=== PATIENT | male | born 1950 | race Caucasian/White ===

== ENCOUNTER 2017-06-20 15:57 | Outpatient (CLI) | payer MEDICARE, BC ==
[2017-06-20 16:11] LABS: Hemoglobin 13.4 g/dL (14.0-18.0)
== END 2017-06-20 15:58 | disposition home or self-care (01) ==
LOC: NAV LAB 15:57
PROVIDERS: ATTEND Internal Medicine Gastroenterology
DX: K92.1 Melena (principal)
CPT/HCPCS: 85014; 85018

== ENCOUNTER 2019-02-03 09:07 | Emergency (ER) | payer MEDICARE, BC | END 2019-02-03 09:41 | disposition home or self-care (01) | LOC: NAV ERS 09:07 | DX: T16.2XXA Foreign body in left ear, initial encounter (principal); Z87.891 Personal history of nicotine dependence; Z79.899 Other long term (current) drug therapy; Z79.84 Long term (current) use of oral hypoglycemic drugs; Z79.82 Long term (current) use of aspirin; W45.8XXA Other foreign body or object entering through skin, initial encounter | CPT/HCPCS: 99282 ==

== ENCOUNTER 2020-07-19 16:15 | Outpatient (CLI) | payer MEDICARE, OTHER | END 2020-07-19 16:16 | disposition home or self-care (01) | LOC: NAV RAD 16:15 | PROVIDERS: ATTEND Family Medicine | DX: M25.531 Pain in right wrist (principal); M19.031 Primary osteoarthritis, right wrist; M19.041 Primary osteoarthritis, right hand ==

== ENCOUNTER 2020-07-24 12:58 | Outpatient (CLI) | payer MEDICARE, OTHER | END 2020-07-24 12:59 | disposition home or self-care (01) | LOC: NAV CT 12:58 | PROVIDERS: ATTEND Family Medicine | DX: S62.101A Fracture of unspecified carpal bone, right wrist, initial encounter for closed fracture (principal); M19.031 Primary osteoarthritis, right wrist ==

== ENCOUNTER 2021-07-23 10:47 | Emergency (ER) | payer MEDICARE | END 2021-07-23 11:16 | disposition home or self-care (01) | LOC: NAV ERS 10:47 | DX: S16.1XXA Strain of muscle, fascia and tendon at neck level, initial encounter (principal); I10 Essential (primary) hypertension; X50.1XXA Overexertion from prolonged static or awkward postures, initial encounter; Z87.891 Personal history of nicotine dependence; Z79.82 Long term (current) use of aspirin; Z79.899 Other long term (current) drug therapy | CPT/HCPCS: 99283 ==